=== PATIENT | male | born 1970 | race African-American/Black ===

== ENCOUNTER 2019-07-06 16:36 | Emergency (ER) | payer SELFPAY ==
[~2019-07-06] VITALS: Ht 185.4 cm; Wt 150.0 kg
[2019-07-06 17:04] VITALS: BP 185/105
[2019-07-06] MEDS ORDERED: VISCOUS LIDOCAINE 2% 15 ML UDC MM STA (17:36)
[2019-07-06] MEDS ORDERED: DEXAMETHASONE 10 MG/ML VIAL IM ONE (17:45)
== END 2019-07-06 18:19 | disposition home or self-care (01) ==
LOC: ER 16:36
DX: J02.9 Acute pharyngitis, unspecified (principal); R03.0 Elevated blood-pressure reading, without diagnosis of hypertension
CPT/HCPCS: 87070; 87430; 96372; 99283; J1100

== ENCOUNTER 2020-02-01 01:34 | Emergency (ER) | payer SELFPAY ==
[~2020-02-01] VITALS: Ht 180.3 cm; Wt 118.0 kg
[2020-02-01] MEDS ORDERED: SODIUM CHLORIDE 0.9% 1,000 ML IV ONE (03:15)
[2020-02-01] MEDS ORDERED: ONDANSETRON HCL 4MG/2ML INJ IV STA (03:15)
[2020-02-01] MEDS ORDERED: FAMOTIDINE 20MG/2ML VIAL IV STA (03:15)
[2020-02-01] MEDS ORDERED: MORPHINE SULFATE 4 MG/ML CPJ (NOT FOR IM USE) IV STA (03:15)
[2020-02-01 03:47] LABS: BASOPHILS % 0.4 % (0.0-2.0); EOSINOPHILS % 1.9 % (0.0-5.0); HEMATOCRIT. 42.7 % (42.0-52.0); HEMOGLOBIN. 14.2 g/dL (14.0-18.0); LYMPHOCYTES % 16.3 % (20.0-50.0); MEAN CORPUSCULAR HEMOGLOBIN 29.6 pg (28.0-32.0); MEAN PLATELET VOLUME 8.9 fl (7.4-10.4); MONOCYTES % 3.7 % (2.0-8.0); NEUTROPHILS % 77.7 % (40.0-76.0); PLATELET 285 x1000/uL (130-400); RED BLOOD CELL COUNT 4.79 mill/uL (4.7-6.1); RED CELL DISTRIBUTION WIDTH 15.4 % (11.6-14.6)
[2020-02-01 03:54] LABS: CHLORIDE 102 mEq/L (98-107)
[2020-02-01] MEDS ORDERED: CEFTRIAXONE 1 G PREMIX 50 ML IV ONE (05:30)
[2020-02-01 06:45] VITALS: BP 177/107
== END 2020-02-01 06:58 | disposition home or self-care (01) ==
LOC: ER 01:42
DX: K80.20 Calculus of gallbladder without cholecystitis without obstruction (principal); I10 Essential (primary) hypertension; K76.0 Fatty (change of) liver, not elsewhere classified
CPT/HCPCS: 36415; 76705; 80053; 83690; 85025; 96365; 96375; 99284; J0696; J2270; J2405; J3490; J7030

== ENCOUNTER 2020-07-05 07:36 | Emergency (ER) | payer MEDICAID ==
[~2020-07-05] VITALS: Ht 185.4 cm; Wt 136.0 kg
[2020-07-05] MEDS ORDERED: MORPHINE SULFATE 4 MG/ML CPJ (NOT FOR IM USE) IV STA (08:13)
[2020-07-05] MEDS ORDERED: ONDANSETRON HCL 4MG/2ML INJ IV STA (08:13)
[2020-07-05] MEDS ORDERED: FAMOTIDINE 20MG/2ML VIAL IV STA (08:13)
[2020-07-05] MEDS ORDERED: SODIUM CHLORIDE 0.9% 1,000 ML IV ONE (08:15)
[2020-07-05 08:33] LABS: CHLORIDE 107 mEq/L (98-107)
[2020-07-05 08:34] LABS: BASOPHILS % 0.5 % (0.0-2.0); EOSINOPHILS % 3.4 % (0.0-5.0); HEMATOCRIT. 39.8 % (42.0-52.0); HEMOGLOBIN. 13.1 g/dL (14.0-18.0); LYMPHOCYTES % 18.3 % (20.0-50.0); MEAN CORPUSCULAR HEMOGLOBIN 29.1 pg (28.0-32.0); MEAN CORPUSCULAR VOLUME 88.8 fL (80.0-94.0); MEAN PLATELET VOLUME 8.6 fl (7.4-10.4); MONOCYTES % 5.1 % (2.0-8.0); NEUTROPHILS % 72.7 % (40.0-76.0); PLATELET 289 x1000/uL (130-400); RED BLOOD CELL COUNT 4.49 mill/uL (4.7-6.1); RED CELL DISTRIBUTION WIDTH 14.4 % (11.6-14.6)
[2020-07-05 09:45] LABS: CLARITY URINE CLEAR (CLEAR); COLOR URINE YELLOW (YELLOW); KETONES URINE TRACE (NEGATIVE); LEUKOCYTE ESTERASE URINE NEGATIVE (NEGATIVE); NITRITE URINE NEGATIVE (NEGATIVE); OCCULT BLOOD URINE NEGATIVE (NEGATIVE); PROTEIN URINE TRACE (NEGATIVE); SPECIFIC GRAVITY URINE 1.031 (1.005-1.030); UROBILINOGEN URINE 0.2 E.U./dL (0.2-1.0)
[2020-07-05 09:50] VITALS: BP 150/68
== END 2020-07-05 12:19 | disposition home or self-care (01) ==
LOC: ER 07:36
DX: K80.20 Calculus of gallbladder without cholecystitis without obstruction (principal); I10 Essential (primary) hypertension
CPT/HCPCS: 36415; 76705; 80053; 81003; 83690; 85025; 93005; 96374; 96375; 99285; J2270; J2405; J3490; J7030

== ENCOUNTER 2020-10-23 06:24 | Emergency (ER) | payer SELFPAY ==
[~2020-10-23] VITALS: Ht 185.4 cm; Wt 127.0 kg
[2020-10-23 07:09] LABS: CLARITY URINE CLEAR (CLEAR); COLOR URINE YELLOW (YELLOW); KETONES URINE NEGATIVE (NEGATIVE); LEUKOCYTE ESTERASE URINE NEGATIVE (NEGATIVE); NITRITE URINE NEGATIVE (NEGATIVE); OCCULT BLOOD URINE NEGATIVE (NEGATIVE); PH URINE 7.5 (4.5-8.0); PROTEIN URINE NEGATIVE (NEGATIVE); SPECIFIC GRAVITY URINE 1.019 (1.005-1.030)
[2020-10-23] MEDS ORDERED: MORPHINE SULFATE 4 MG/ML CPJ (NOT FOR IM USE) IV STA (07:09)
[2020-10-23] MEDS ORDERED: FAMOTIDINE 20MG/2ML VIAL IV STA (07:09)
[2020-10-23] MEDS ORDERED: SODIUM CHLORIDE 0.9% 1,000 ML IV ONE (07:15)
[2020-10-23] MEDS ORDERED: HYDROCODONE/ACETAMINOPHEN 10/325MG TABLET PO NR (09:15)
[2020-10-23 11:31] LABS: BASOPHILS % 0.3 % (0.0-2.0); EOSINOPHILS % 4.1 % (0.0-5.0); HEMATOCRIT. 42.5 % (42.0-52.0); LYMPHOCYTES % 19.3 % (20.0-50.0); MEAN CORPUSCULAR HEMOGLOBIN 28.9 pg (28.0-32.0); MEAN CORPUSCULAR VOLUME 87.4 fL (80.0-94.0); MEAN PLATELET VOLUME 8.9 fl (7.4-10.4); NEUTROPHILS % 71.3 % (40.0-76.0); PLATELET 242 x1000/uL (130-400); RED BLOOD CELL COUNT 4.86 mill/uL (4.7-6.1); RED CELL DISTRIBUTION WIDTH 14.5 % (11.6-14.6)
[2020-10-23 11:37] LABS: CHLORIDE 109 mEq/L (98-107)
[2020-10-23 11:41] LABS: PROTHROMBIN TIME 10.4 sec (9.6-11.0)
[2020-10-23 12:30] VITALS: BP 159/72
== END 2020-10-23 12:53 | disposition left against medical advice (07) ==
LOC: ER 06:24
DX: K80.20 Calculus of gallbladder without cholecystitis without obstruction (principal); K85.10 Biliary acute pancreatitis without necrosis or infection; I10 Essential (primary) hypertension; F12.10 Cannabis abuse, uncomplicated
CPT/HCPCS: 36415; 76705; 80053; 81003; 83690; 85025; 85610; 93005; 96361; 96374; 96375; 99285; J2270; J3490; J7030

== ENCOUNTER 2022-05-19 03:36 | Inpatient (IN) | payer MEDICAID ==
[~2022-05-19] VITALS: Ht 185.4 cm; Wt 136.1 kg
[~2022-05-19 03:36] MED LIST: AMLO10TA4 MT; ASPI-1497 MT; COR3 MT; HYDR-4135 MT; LIP40 MT
[2022-05-19] MEDS ORDERED: MORPHINE SULFATE 4 MG/ML CPJ (NOT FOR IM USE) IV STA (07:22)
[2022-05-19] MEDS ORDERED: SODIUM CHLORIDE 0.9% 1,000 ML IV ONE (07:30)
[2022-05-19 08:53] LABS: HEMATOCRIT. 45.7 % (42.0-52.0); HEMOGLOBIN. 15.2 g/dL (14.0-18.0); MEAN CORPUSCULAR HEMOGLOBIN 29.2 pg (28.0-32.0); MEAN CORPUSCULAR VOLUME 87.8 fL (80.0-94.0); MEAN PLATELET VOLUME 8.8 fl (7.4-10.4); PLATELET 281 x1000/uL (130-400); RED BLOOD CELL COUNT 5.21 mill/uL (4.7-6.1); RED CELL DISTRIBUTION WIDTH 14.7 % (11.6-14.6)
[2022-05-19 08:59] LABS: CHLORIDE 101 mEq/L (98-107)
[2022-05-19 09:20] LABS: PROTHROMBIN TIME 10.5 sec (9.6-11.0)
[2022-05-19 10:13] LABS: PLATELET ESTIMATE NORMAL
[2022-05-19] MEDS ORDERED: KETOROLAC 15MG/ML VIAL IV ONE (10:15)
[2022-05-19] MEDS ORDERED: AMLODIPINE 10MG TABLET PO ONE (10:15)
[2022-05-19] MEDS ORDERED: AMLODIPINE 10MG TABLET PO NR (12:00)
[2022-05-19] MEDS: PIPERACILLIN/TAZOBACTAM 3.375GM/50ML PREMIX IV NR ×2 (13:00→14:43)
[2022-05-19] MEDS ORDERED: CLONIDINE 0.1MG TABLET PO PRN (18:15)
[2022-05-19] MEDS ORDERED: PIPERACILLIN/TAZ 3.375G PREMIX 50 ML IV NR (18:30)
[2022-05-19 18:33] LABS: CLARITY URINE CLEAR (CLEAR); COLOR URINE YELLOW (YELLOW); KETONES URINE NEGATIVE (NEGATIVE); LEUKOCYTE ESTERASE URINE NEGATIVE (NEGATIVE); NITRITE URINE NEGATIVE (NEGATIVE); OCCULT BLOOD URINE 1+ (NEGATIVE); PH URINE 7.5 (4.5-8.0); PROTEIN URINE TRACE (NEGATIVE); SPECIFIC GRAVITY URINE 1.011 (1.005-1.030); UROBILINOGEN URINE 0.2 E.U./dL (0.2-1.0)
[2022-05-19] MEDS: SODIUM CHLORIDE 0.9% 1,000 ML IV SCH (19:13)
[2022-05-19] MEDS: PIPERACILLIN/TAZOBACTAM 3.375G in DEXT 5% WATER 50ML IV SCH (23:10)
[2022-05-19] MEDS: MORPHINE SULFATE 2 MG/ML CPJ (NOT FOR IM USE) IV PRN (23:15)
[2022-05-20] MEDS ORDERED: AMLODIPINE 10MG TABLET PO NR (02:45)
[2022-05-20 04:00] VITALS: BP 146/80
[2022-05-20 05:03] VITALS: BP 146/80
[2022-05-20] MEDS: SODIUM CHLORIDE 0.9% 1,000 ML IV SCH ×2 (06:00→09:48)
[2022-05-20 08:00] VITALS: BP 129/84
[2022-05-20] MEDS: PIPERACILLIN/TAZOBACTAM 3.375G in DEXT 5% WATER 50ML IV SCH ×3 (08:51→21:49)
[2022-05-20 10:56] LABS: BASOPHILS % 0.3 % (0.0-2.0); EOSINOPHILS % 0.3 % (0.0-5.0); HEMATOCRIT. 44.4 % (42.0-52.0); HEMOGLOBIN. 14.7 g/dL (14.0-18.0); LYMPHOCYTES % 9.9 % (20.0-50.0); MEAN CORPUSCULAR HEMOGLOBIN 28.8 pg (28.0-32.0); MEAN CORPUSCULAR VOLUME 87.2 fL (80.0-94.0); MEAN PLATELET VOLUME 8.7 fl (7.4-10.4); MONOCYTES % 7.2 % (2.0-8.0); NEUTROPHILS % 82.3 % (40.0-76.0); PLATELET 243 x1000/uL (130-400); RED BLOOD CELL COUNT 5.09 mill/uL (4.7-6.1); RED CELL DISTRIBUTION WIDTH 14.6 % (11.6-14.6)
[2022-05-20 11:06] LABS: CHLORIDE 102 mEq/L (98-107)
[2022-05-20 12:00] VITALS: BP 146/85
[2022-05-20] MEDS: AMLODIPINE 10MG TABLET PO SCH (13:19)
[2022-05-20 16:00] VITALS: BP 152/90
[2022-05-20] MEDS: MORPHINE SULFATE 2 MG/ML CPJ (NOT FOR IM USE) IV PRN (16:47)
[2022-05-20 20:00] VITALS: BP 138/87
[2022-05-21] VITALS: BP 141/78
[2022-05-21 04:00] VITALS: BP 131/63
[2022-05-21] MEDS: SODIUM CHLORIDE 0.9% 1,000 ML IV SCH ×3 (06:00→17:40)
[2022-05-21] MEDS: PIPERACILLIN/TAZOBACTAM 3.375G in DEXT 5% WATER 50ML IV SCH ×3 (06:42→22:05)
[2022-05-21 06:59] LABS: BASOPHILS % 0.5 % (0.0-2.0); EOSINOPHILS % 1.1 % (0.0-5.0); HEMATOCRIT. 40.9 % (42.0-52.0); HEMOGLOBIN. 13.7 g/dL (14.0-18.0); LYMPHOCYTES % 12.4 % (20.0-50.0); MEAN CORPUSCULAR HEMOGLOBIN 29.1 pg (28.0-32.0); MEAN CORPUSCULAR VOLUME 86.5 fL (80.0-94.0); MEAN PLATELET VOLUME 8.8 fl (7.4-10.4); PLATELET 231 x1000/uL (130-400); RED BLOOD CELL COUNT 4.73 mill/uL (4.7-6.1); RED CELL DISTRIBUTION WIDTH 14.6 % (11.6-14.6)
[2022-05-21 07:24] LABS: CHLORIDE 102 mEq/L (98-107)
[2022-05-21 08:00] VITALS: BP 150/80
[2022-05-21] MEDS: AMLODIPINE 10MG TABLET PO SCH (08:37)
[2022-05-21] MEDS: MORPHINE SULFATE 2 MG/ML CPJ (NOT FOR IM USE) IV PRN (14:37)
[2022-05-21] MEDS: HYDRALAZINE 20MG/ML VIAL IV PRN (14:37)
[2022-05-21 16:00] VITALS: BP 167/87
[2022-05-21] MEDS: KETOROLAC 30MG/ML VIAL IV SCH ×2 (17:38→23:44)
[2022-05-21 20:00] VITALS: BP 116/39
[2022-05-21] MEDS: METOPROLOL TARTRATE 25MG TABLET PO SCH (20:32)
[2022-05-22] VITALS: BP 128/74
[2022-05-22 04:00] VITALS: BP 138/69
[2022-05-22] MEDS: PIPERACILLIN/TAZOBACTAM 3.375G in DEXT 5% WATER 50ML IV SCH ×3 (05:46→21:23)
[2022-05-22] MEDS: KETOROLAC 30MG/ML VIAL IV SCH ×4 (05:46→23:23)
[2022-05-22] MEDS: SODIUM CHLORIDE 0.9% 1,000 ML IV SCH ×2 (05:55→19:37)
[2022-05-22 06:24] LABS: BASOPHILS % 0.3 % (0.0-2.0); EOSINOPHILS % 1.5 % (0.0-5.0); HEMATOCRIT. 39.9 % (42.0-52.0); HEMOGLOBIN. 13.4 g/dL (14.0-18.0); LYMPHOCYTES % 12.5 % (20.0-50.0); MEAN CORPUSCULAR HEMOGLOBIN 29.1 pg (28.0-32.0); MEAN CORPUSCULAR VOLUME 86.8 fL (80.0-94.0); MEAN PLATELET VOLUME 8.6 fl (7.4-10.4); MONOCYTES % 10.3 % (2.0-8.0); NEUTROPHILS % 75.4 % (40.0-76.0); PLATELET 220 x1000/uL (130-400); RED BLOOD CELL COUNT 4.59 mill/uL (4.7-6.1); RED CELL DISTRIBUTION WIDTH 14.6 % (11.6-14.6)
[2022-05-22] MEDS ORDERED: SKIN ADHESIVE 0.7 GM EA TOP ONE (06:50)
[2022-05-22] MEDS ORDERED: BUPIVACAINE HCL/PF 0.5% (5MG/ML) 10ML ONE (06:50)
[2022-05-22 08:00] VITALS: BP 128/80
[2022-05-22 08:37] LABS: CHLORIDE 102 mEq/L (98-107)
[2022-05-22] MEDS: METOPROLOL TARTRATE 25MG TABLET PO SCH ×2 (09:30→20:28)
[2022-05-22] MEDS: AMLODIPINE 10MG TABLET PO SCH (09:30)
[2022-05-22] MEDS ORDERED: PROPOFOL 200MG/20ML VIAL IV ONE (10:37)
[2022-05-22] MEDS ORDERED: ROCURONIUM BROMIDE 10MG/ML VIAL 5ML IV ONE ×2 (10:37→11:27)
[2022-05-22] MEDS ORDERED: MIDAZOLAM HCL 2 MG/2 ML VIAL ONE (10:37)
[2022-05-22] MEDS ORDERED: FENTANYL CITRATE/PF 50MCG/ML 2ML VIAL ONE (10:38)
[2022-05-22] MEDS ORDERED: MORPHINE SULFATE 2 MG/ML CPJ (NOT FOR IM USE) IV PRN (10:45)
[2022-05-22] MEDS ORDERED: HYDROCODONE/ACETAMINOPHEN 5/325MG TABLET PO PRN ×2 (10:45)
[2022-05-22] MEDS ORDERED: MORPHINE SULFATE 4 MG/ML CPJ (NOT FOR IM USE) IV PRN (10:45)
[2022-05-22] MEDS ORDERED: ONDANSETRON HCL 4MG/2ML INJ IV PRN (10:45)
[2022-05-22] MEDS ORDERED: CEFAZOLIN SODIUM 1000MG/VIAL ONE ×2 (11:29→11:30)
[2022-05-22] MEDS ORDERED: ONDANSETRON HCL 4MG/2ML INJ IV NR (11:30)
[2022-05-22] MEDS ORDERED: METOCLOPRAMIDE HCL 10MG/2ML VIAL ONE (11:30)
[2022-05-22] MEDS ORDERED: ONDANSETRON HCL 4MG/2ML INJ ONE (11:30)
[2022-05-22] MEDS ORDERED: DEXAMETHASONE 4MG/ML 1ML VIAL ONE (11:30)
[2022-05-22] MEDS ORDERED: NEOSTIGMINE METHYLSULFATE 1MG/ML 10 ML VIAL ONE (12:08)
[2022-05-22] MEDS ORDERED: GLYCOPYRROLATE 0.2 MG/ML 2ML VIAL ONE ×2 (12:08)
[2022-05-22] MEDS ORDERED: FENTANYL CITRATE/PF 50MCG/ML 2ML VIAL IV PRN (12:15)
[2022-05-22] MEDS: HYDRALAZINE 20MG/ML VIAL IV PRN (13:57)
[2022-05-22] MEDS: SODIUM CHLORIDE 0.9% INJ 3ML FLUSH IVF SCH ×2 (14:00→21:23)
[2022-05-22 16:00] VITALS: BP 158/85
[2022-05-22] MEDS: DEXT 5%/0.45% NACL KCL 20MEQ/L 1,000 ML IV SCH ×2 (16:58→21:06)
[2022-05-22] MEDS ORDERED: NALOXONE HCL 0.4MG/ML VIAL IV PRN (17:15)
[2022-05-22 20:00] VITALS: BP 158/85
[2022-05-23] VITALS: BP 152/85
[2022-05-23] MEDS: DEXT 5%/0.45% NACL KCL 20MEQ/L 1,000 ML IV SCH ×2 (03:00→13:00)
[2022-05-23 04:00] VITALS: BP 142/76
[2022-05-23] MEDS: PIPERACILLIN/TAZOBACTAM 3.375G in DEXT 5% WATER 50ML IV SCH ×2 (05:15→14:00)
[2022-05-23] MEDS: KETOROLAC 30MG/ML VIAL IV SCH ×3 (05:15→17:15)
[2022-05-23] MEDS: SODIUM CHLORIDE 0.9% INJ 3ML FLUSH IVF SCH ×2 (05:15→14:54)
[2022-05-23 07:09] LABS: BASOPHILS % 0.1 % (0.0-2.0); EOSINOPHILS % 0.1 % (0.0-5.0); HEMATOCRIT. 37.2 % (42.0-52.0); HEMOGLOBIN. 12.4 g/dL (14.0-18.0); LYMPHOCYTES % 9.9 % (20.0-50.0); MEAN CORPUSCULAR HEMOGLOBIN 29.2 pg (28.0-32.0); MEAN CORPUSCULAR VOLUME 87.6 fL (80.0-94.0); MEAN PLATELET VOLUME 8.8 fl (7.4-10.4); MONOCYTES % 10.4 % (2.0-8.0); NEUTROPHILS % 79.5 % (40.0-76.0); PLATELET 263 x1000/uL (130-400); RED BLOOD CELL COUNT 4.25 mill/uL (4.7-6.1); RED CELL DISTRIBUTION WIDTH 14.6 % (11.6-14.6)
[2022-05-23 07:17] LABS: CHLORIDE 104 mEq/L (98-107)
[2022-05-23 08:00] VITALS: BP 144/72
[2022-05-23] MEDS: METOPROLOL TARTRATE 25MG TABLET PO SCH (10:30)
[2022-05-23] MEDS: AMLODIPINE 10MG TABLET PO SCH (10:30)
[2022-05-23 12:00] VITALS: BP 138/80
[2022-05-23] MEDS ORDERED: LEVO500T90 MT (14:41)
[2022-05-23] MEDS ORDERED: DOCU-138 MT (14:41)
[2022-05-23] MEDS ORDERED: HYDR-4001 MT (14:41)
[2022-05-23] MEDS ORDERED: AMLO10TA80 PO (14:46)
[2022-05-23] MEDS ORDERED: METO25TA6 PO (14:46)
[2022-05-23 16:51] VITALS: BP 138/80
== END 2022-05-23 18:30 | disposition home or self-care (01) | DRG 263 ==
LOC: ER 03:36 → 7EST 13:50 → EDBEDREQ 13:55 → ENRESERV 23:04 → ER 05-20 03:35
PROVIDERS: ADMIT Internal Medicine; ATTEND Internal Medicine
PROC: 0FT44ZZ Resection of Gallbladder, Percutaneous Endoscopic Approach (ICD-10-PCS; principal; 2022-05-22)
DX: K80.00 Calculus of gallbladder with acute cholecystitis without obstruction (principal); N17.9 Acute kidney failure, unspecified; R65.10 Systemic inflammatory response syndrome (SIRS) of non-infectious origin without acute organ dysfunction; Z20.822 Contact with and (suspected) exposure to COVID-19; I10 Essential (primary) hypertension; E87.6 Hypokalemia; E78.5 Hyperlipidemia, unspecified; F12.90 Cannabis use, unspecified, uncomplicated; Z79.899 Other long term (current) drug therapy
CPT/HCPCS: 36415; 74176; 76705; 78227; 80048; 80053; 80076; 81003; 82962; 85025; 86850; 86900; 87426; 88304; 99285; A9537; C9803; J0360; J0690; J1100; J1885; J2250; J2270; J2405; J2543; J2704; J2710; J2765; J3010; J3490; J7030; J7060